=== PATIENT | female | born 1985 | race Caucasian/White ===

== ENCOUNTER 2016-09-29 17:30 | Emergency (ER) | payer OTHER ==
[~2016-09-29] VITALS: Ht 149.9 cm; Wt 65.8 kg
[2016-09-29 17:30] VITALS: BP 133/93
== END 2016-09-29 20:18 | disposition left against medical advice (07) ==
LOC: M ED 20:18
DX: K13.79 Other lesions of oral mucosa (principal); Z53.21 Procedure and treatment not carried out due to patient leaving prior to being seen by health care provider

== ENCOUNTER 2017-01-20 22:01 | Emergency (ER) | payer MEDICAID, OTHER, SELFPAY ==
[~2017-01-20] VITALS: Ht 149.9 cm; Wt 62.2 kg
[2017-01-20] MEDS ORDERED: TYLE500T78 PO (22:20)
[2017-01-21] MEDS ORDERED: NS 1,000 ML IV ONE (01:00)
[2017-01-21 01:18] LABS: BASO % 0.2 % (0.0-1.0); EOS # 0.2 K/mm3 (0.0-0.50); EOS % 1.4 % (0.0-3.0); LARGE UNSTAINED CELL # 0.1 K/mm3 (0.0-0.4); LARGE UNSTAINED CELL % 1.1 % (0.0-4.0); LYMPH # 2.2 K/mm3 (1.5-4.5); LYMPH % 21.7 % (24.0-44.0); MEAN CORPUSCULAR HEMOGLOBIN 30.3 pg (27.0-33.0); MEAN CORPUSCULAR HGB CONC 34.8 g/dl (32.0-36.5); MEAN CORPUSCULAR VOLUME 87.3 fl (80.0-96.0); MONO # 0.4 K/mm3 (0.0-0.8); MONO % 4.1 % (0.0-5.0); NEUTROPHILS # 7.3 K/mm3 (1.8-7.7); NEUTROPHILS % 71.4 % (36.0-66.0); PLATELET COUNT, AUTOMATED 307 k/mm3 (150-450); WHITE BLOOD COUNT 10.3 K/mm3 (4.0-10.0)
[2017-01-21 01:38] LABS: ALBUMIN 4.3 GM/DL (3.2-5.2); ALBUMIN/GLOBULIN RATIO 1.16 (1.00-1.93); ALKALINE PHOSPHATASE 74 U/L (45-117); ALT/SGPT 12 U/L (12-78); ANION GAP 10 MEQ/L (8-16); AST/SGOT 9 U/L (15-37); BILIRUBIN,DIRECT 0.1 MG/DL (0.0-0.2); BILIRUBIN,TOTAL 0.4 MG/DL (0.2-1.0); BLOOD UREA NITROGEN 5 MG/DL (7-18); CALCIUM LEVEL 9.4 MG/DL (8.5-10.1); CARBON DIOXIDE LEVEL 23 MEQ/L (21-32); CHLORIDE LEVEL 109 MEQ/L (98-107); CREATININE FOR GFR 0.63 MG/DL (0.55-1.02); GLOMERULAR FILTRATION RATE > 60.0 (>60); GLUCOSE, FASTING 80 MG/DL (70-105); POTASSIUM SERUM 3.3 MEQ/L (3.5-5.1); SODIUM LEVEL 142 MEQ/L (136-145)
[2017-01-21 04:44] VITALS: BP 120/70
--- NOTE | 2017-01-25 12:52 | REPUSA ---
CLINICAL HISTORY: Pain. TECHNIQUE: Endovaginal ultrasound of the pelvis was performed. FINDINGS: Single intrauterine gestational sac measuring 6.3 mm. This corresponds to an estimated gestation age of 5 weeks and 2 days. The right ovary measures 3x2.7x3.1 cm. There is a right ovarian corpus luteum cyst measuring 2.2 cm. The left ovary measures 2.7x1.5x2 cm. Small amount of free pelvic fluid is noted. IMPRESSION: Single intrauterine gestational sac. Yolk SAC is noted. No pole is seen. Minimal free fluid in the pelvic cul-de-sac.
== END 2017-01-21 04:54 | disposition home or self-care (01) ==
LOC: M ED 22:01
DX: O99.89 Other specified diseases and conditions complicating pregnancy, childbirth and the puerperium (principal); R10.9 Unspecified abdominal pain; Z3A.01 Less than 8 weeks gestation of pregnancy; O99.331 Smoking (tobacco) complicating pregnancy, first trimester

== ENCOUNTER → 2019-08-27 | Outpatient (REF) ==
[~2019-08-27] MED LIST: TYLE500T78 PO
== END ==
LOC: M LAB REF 11:20
PROVIDERS: ATTEND Physician Assistant
DX: R05 Cough (principal)